=== PATIENT | female | born 1965 | race Two or more races ===

== ENCOUNTER 2018-04-24 08:05 | Outpatient (CLI) | payer OTHER | END 2018-04-24 08:22 | disposition home or self-care (01) | LOC: MAMO-SONO 08:05 | DX: N60.11 Diffuse cystic mastopathy of right breast (principal) ==

== ENCOUNTER 2021-06-21 10:22 | Outpatient (CLI) | payer OTHER | END 2021-06-21 10:26 | disposition home or self-care (01) | LOC: MAMO-SONO 10:22 | PROVIDERS: ATTEND Obstetrics & Gynecology | DX: N60.11 Diffuse cystic mastopathy of right breast (principal) ==